=== PATIENT | male | born 1965 | race Caucasian/White ===

== ENCOUNTER 2019-09-26 00:31 | Outpatient (CLI) | payer BC, SELFPAY ==
[2019-09-26 18:35] LABS: SARS-CoV-2 RNA PCR Negative
== END 2019-09-26 00:32 | disposition home or self-care (01) ==
LOC: ANHCOVIDDT 00:31
PROVIDERS: PCP Internal Medicine; Visit Provider Internal Medicine Gastroenterology
DX: Z01.812 Encounter for preprocedural laboratory examination (principal); Z20.828 Contact with and (suspected) exposure to other viral communicable diseases
CPT/HCPCS: 87635; C9803; U0003

== ENCOUNTER 2019-09-29 01:28 | Day surgery (SDC) | payer BC, SELFPAY ==
[2019-09-19 09:47] VITALS: BMI 38.7
--- NOTE | 2019-09-29 06:48 | WPDANESEPPF ---
Anes - Initial Pre Proc Eval Procedure: Operation Date: 09/29/19 08:00 Proposed Procedures p Screening Colonoscopy - Axel Lopez MD Date/Time: 09/29/19 06:48 Surgeon: Axel Lopez MD Pre Op Diagnosis: neoplasm screening, family hx colon CA Patient Data Age: 54 Gender: M Height: 1.83 m Weight: 129.5 kg Allergies Allergy/AdvReac Type Severity Reaction Status Date / Time bupropion Allergy Unknown Hives Verified 09/29/19 06:51 tramadol AdvReac Intermediate Dyspnea / Verified 09/29/19 06:51 SOB Home Medications Medication Instructions Recorded Confirmed Type lisinopril 5 mg tablet 5 mg PO DAILY 02/06/19 02/10/19 History melatonin 10 mg capsule PO 02/06/19 02/10/19 History metoprolol succinate 50 mg 50 mg PO DAILY 02/06/19 02/10/19 History tablet,extended release 24 hr omega-3 fatty acids 500 mg capsule 1,000 mg PO DAILY cap 02/06/19 02/10/19 History rosuvastatin 20 mg tablet 20 mg PO DAILY 02/10/19 02/10/19 History testosterone cypionate 200 mg/mL 200 mg IM .every 2 weeks #10 ml 06/10/19 06/10/19 Rx intramuscular oil zolpidem 10 mg tablet 10 mg PO .at hs #30 tablet 06/10/19 06/10/19 Rx quetiapine 25 mg tablet 25 mg PO BID #180 tablet 07/28/19 Rx metformin 500 mg tablet See Rx Instructions .ROUTE 08/07/19 Rx .COMPLEX #180 tablet clopidogrel 75 mg PO DAILY 09/29/19 09/29/19 History Patient hx anesthesia problems: none Family hx anesthesia problems: none PMFSH Past Medical History Medical History (Updated 09/29/19 @ 06:50 by Rosalio Diaz MD) Arthritis CAD (coronary artery disease) COPD (chronic obstructive pulmonary disease) Enlarged prostate with lower urinary tract symptoms (LUTS) Essential (primary) hypertension Hyperlipidemia, unspecified Meniere disorder Obesity Obstructive sleep apnea Type 2 diabetes mellitus without complication, without long-term current use of insulin Surgical History Surgical History (Updated 09/29/19 @ 06:50 by Rosalio Diaz MD) Hx of CABG Family History Family History (Updated 07/17/18 @ 10:00 by DOCTOR UNKNOWN) Mother Carcinoma of colon Patient's mother is Family history of coronary artery disease Family history of diabetes mellitus in first degree relative Family history of heart disease in male family member before age 55 Father Malignant neoplasm of prostate Family history of coronary artery disease Patient's father is Family history of lung disease Family history of heart disease in male family member before age 55 Social History Social History Smoking status: Former smoker Smoking end date: 02/12/11 Alcohol intake: never Anes - Eval Final PreProcedure Day of Procedure 09/29/19 06:48 Patient weight: obese Heart: regular rate and rhythm Lungs: clear to auscultation and normal air movement Airway: Mallampati scale class II Neurological: alert and oriented Last oral intake: >/= 8 hours ASA classification: III Emergent: no Anesthetic plan: proceed Anesthesia type and monitoring: general GIVS Informed Consent: The patient's anesthetic plan and its attendant risks and benefits were discussed with the patient/family/POA. Questions were solicited and answers provided to the satisfaction of the patient/family/POA.
[2019-09-29 06:53] VITALS: BP 120/82; PULSE 84; RESP 16; TEMP 36.2; O2SAT 98; BMI 37.6
[2019-09-29] MEDS: LACTATED RINGERS 1,000 ML 150 ML IV CONT (07:10)
[2019-09-29 07:50] LABS: Glucose Point of Care 141 (65-105)
--- NOTE | 2019-09-29 08:01 | WPDGICN ---
Assessment and Plan Assessment and plan (1) Family history of colon cancer: Code(s): Z80.0 - Family history of malignant neoplasm of digestive organs Status: Acute Assessment and Plan: Patient's mother had colon cancer. Patient's last colonoscopy was 6 years ago. Plan is for follow-up colonoscopy now and to be considered at 5 year intervals in the future. (2) CAD (coronary artery disease): Code(s): I25.10 - Atherosclerotic heart disease of [place] coronary artery without angina pectoris Status: Acute (3) Type 2 diabetes mellitus without complication, without long-term current use of insulin: Code(s): E11.9 - Type 2 diabetes mellitus without complications Status: Acute (4) COPD (chronic obstructive pulmonary disease): Code(s): J44.9 - Chronic obstructive pulmonary disease, unspecified Status: Acute GI Consult Note Consult date/time: 09/29/19 08:01 HPI: Noman Sigala is a 54 year old male Seen in evaluation at the request of Dr. Rik Templeton. Patient presents for screening colonoscopy. His mother had colon cancer. Patient states that his own weight appetite bowel movements are normal. He denies abdominal pain. He has had no bleeding. His bowel habits are normal. Family history is significant his mother had colon cancer period is no other reported history of colon or rectal disease. Past medical history is significant for atherosclerotic heart disease. Patient had a coronary artery bypass graft several years ago. Review of Systems Review of Systems: All systems reviewed & are unremarkable except as noted in HPI and below PMFSH Past Medical History Medical History Arthritis CAD (coronary artery disease) COPD (chronic obstructive pulmonary disease) Enlarged prostate with lower urinary tract symptoms (LUTS) Essential (primary) hypertension Hyperlipidemia, unspecified Meniere disorder Obesity Obstructive sleep apnea Type 2 diabetes mellitus without complication, without long-term current use of insulin Surgical History Surgical History Hx of CABG Family History Family History Mother Carcinoma of colon Patient's mother is Family history of coronary artery disease Family history of diabetes mellitus in first degree relative Family history of heart disease in male family member before age 55 Father Malignant neoplasm of prostate Family history of coronary artery disease Patient's father is Family history of lung disease Family history of heart disease in male family member before age 55 Social History Social History Smoking status: Former smoker Smoking end date: 02/12/11 Alcohol intake: never Meds Home Medications and Allergies Home Medications Medication Instructions Recorded Confirmed Type lisinopril 5 mg tablet 5 mg PO DAILY 02/06/19 02/10/19 History melatonin 10 mg capsule PO 02/06/19 02/10/19 History metoprolol succinate 50 mg 50 mg PO DAILY 02/06/19 02/10/19 History tablet,extended release 24 hr omega-3 fatty acids 500 mg capsule 1,000 mg PO DAILY cap 02/06/19 02/10/19 History rosuvastatin 20 mg tablet 20 mg PO DAILY 02/10/19 02/10/19 History testosterone cypionate 200 mg/mL 200 mg IM .every 2 weeks #10 ml 06/10/19 06/10/19 Rx intramuscular oil zolpidem 10 mg tablet 10 mg PO .at hs #30 tablet 06/10/19 06/10/19 Rx quetiapine 25 mg tablet 25 mg PO BID #180 tablet 07/28/19 Rx metformin 500 mg tablet See Rx Instructions .ROUTE 08/07/19 Rx .COMPLEX #180 tablet clopidogrel 75 mg PO DAILY 09/29/19 09/29/19 History Allergies Allergy/AdvReac Type Severity Reaction Status Date / Time bupropion Allergy Unknown Hives Verified 09/29/19 06:51 tramadol AdvReac Intermediate Dyspnea / Verified
[2019-09-29 08:25] VITALS: BP 120/82; PULSE 77; RESP 24; O2SAT 98
[2019-09-29 08:35] VITALS: BP 104/73; PULSE 74; RESP 17; O2SAT 96
[2019-09-29 08:45] VITALS: BP 107/73; PULSE 68; RESP 16; O2SAT 99
== END 2019-09-29 09:10 | disposition home or self-care (01) ==
PROVIDERS: PCP Internal Medicine; Visit Provider Internal Medicine Gastroenterology
PROC: 0DJD8ZZ Inspection of Lower Intestinal Tract, Via Natural or Artificial Opening Endoscopic (ICD-10-PCS; CPT 45378; principal; 2019-09-29 08:00)
DX: Z12.11 Encounter for screening for malignant neoplasm of colon (principal); Z80.0 Family history of malignant neoplasm of digestive organs; K57.30 Diverticulosis of large intestine without perforation or abscess without bleeding; K64.8 Other hemorrhoids; I10 Essential (primary) hypertension; E11.9 Type 2 diabetes mellitus without complications; J44.9 Chronic obstructive pulmonary disease, unspecified; I25.10 Atherosclerotic heart disease of native coronary artery without angina pectoris; Z95.1 Presence of aortocoronary bypass graft; E78.5 Hyperlipidemia, unspecified; G47.33 Obstructive sleep apnea (adult) (pediatric); E66.9 Obesity, unspecified; Z68.37 Body mass index [BMI] 37.0-37.9, adult; Z87.891 Personal history of nicotine dependence; Z79.02 Long term (current) use of antithrombotics/antiplatelets
CPT/HCPCS: G0105; J2704; J7120

== ENCOUNTER 2019-12-18 08:44 | Outpatient (CLI) | payer BC, SELFPAY ==
--- NOTE | ~2019-12-18 | CT_ITS ---
EXAMINATION: CT sinus wo con DATE: 12/18/2019 09:17 INDICATION: Chronic sinusitis, rhinitis TECHNIQUE: Computed tomography (CT) of the paranasal sinuses was performed without intravenous contra st. The dose-length product (DLP) was 294.13 mGy-cm. Iterative reconstruction was used. COMPARISON: None FINDINGS: There is a single sphenoid sinus cavity There is otherwise normal development and pneumatiz ation of the paranasal sinuses. There is near complete opacification of the right frontal sinus. A 9 mm polyp or mucous retention cyst is seen in the left maxillary sinus. Surgical changes are noted in the right ethmoidal air cells. There is mucosal thickening of the remaining ethmoidal air cells. Ther e is mucosal thickening of the bilateral maxillary sinuses with possible small fluid levels, right gr eater than left. There is mucosal thickening and wall thickening of the sphenoid sinus. The left osti omeatal complex is patent. The right is obstructed. There are 5 mm of leftward deviation of the nasal septum. Visualized soft tissues are unremarkable. IMPRESSION: 1. Sinus disease as detailed above. Reviewed, dictated and finalized at location A. ING PAINTER
== END 2019-12-18 08:45 | disposition home or self-care (01) ==
PROVIDERS: PCP Internal Medicine; Visit Provider Otolaryngology
DX: J32.9 Chronic sinusitis, unspecified (principal)
CPT/HCPCS: 70486

== ENCOUNTER 2020-02-01 08:01 | Outpatient (CLI) | payer BC, OTHER, SELFPAY ==
--- NOTE | ~2020-02-01 | CT_ITS ---
EXAMINATION:CT lung screening DATE: 02/01/2020 08:25 INDICATION: Personal history of tobacco dependence. Smoker who quit 8 years ago with 50 pack year his tory. TECHNIQUE: Computed tomography (CT) of the chest was performed without intravenous contrast. Automate d exposure control and iterative reconstruction technique were employed. The dose-length product (DLP ) was 417.59 mGy-cm. COMPARISON: Chest CT 11/23/2014 FINDINGS: Calcified pulmonary nodules and calcified hilar and mediastinal lymph nodes are consistent with old granulomatous disease. There is mild atelectasis in right middle lobe. No pleural effusion. The heart size is normal. There are coronary artery calcifications. No pericardial effusion. There ar e changes of coronary artery bypass grafting. There is moderate thoracic spondylosis. IMPRESSION: 1. Lung-RADS category 1: Negative. Continue annual screening with noncontrast low-dose chest CT in 12 months. Reviewed, dictated and finalized at location A. PARTS CLERK IMPRESSION: 1. Lung-RADS category 1: Negative. Continue annual screening with noncontrast l ow-dose chest CT in 12 months.
== END 2020-02-01 08:02 | disposition home or self-care (01) ==
PROVIDERS: PCP Internal Medicine; Visit Provider Nurse Practitioner
DX: Z12.2 Encounter for screening for malignant neoplasm of respiratory organs (principal); Z87.891 Personal history of nicotine dependence
CPT/HCPCS: G0297

== ENCOUNTER 2020-04-03 09:31 | Outpatient (CLI) | payer BC, OTHER, SELFPAY ==
[2020-04-03 10:33] LABS: Anion Gap 9 mmol/L (8-16); Blood Urea Nitrogen 16 mg/dL (9-20); Calcium 9.3 mg/dL (8.4-10.2); Carbon Dioxide 26 mmol/L (22-30); Chloride 103 mmol/L (98-107); Estimated Glomerular Filt Rate > 60; Glucose 184 mg/dL (75-110); Sodium 138 mmol/L (137-145)
== END 2020-04-03 09:32 | disposition home or self-care (01) ==
PROVIDERS: PCP Internal Medicine; Visit Provider Anesthesiology
DX: E11.9 Type 2 diabetes mellitus without complications (principal)
CPT/HCPCS: 36415; 80048

== ENCOUNTER → 2020-04-06 02:38 | Outpatient (CLI) | payer BC, OTHER, SELFPAY ==
[2020-04-06 20:35] LABS: SARS-CoV-2 RNA PCR Negative
== END ==
PROVIDERS: Family Provider Internal Medicine; PCP Internal Medicine; Visit Provider Otolaryngology
DX: Z01.812 Encounter for preprocedural laboratory examination (principal); Z20.822 Contact with and (suspected) exposure to COVID-19
CPT/HCPCS: C9803; U0003; U0005

== ENCOUNTER 2020-04-09 00:41 | Day surgery (SDC) | payer BC, OTHER, SELFPAY ==
[2020-01-06 08:56] VITALS: BMI 39.8
[2020-04-02 08:17] VITALS: BMI 38.0
--- NOTE | 2020-04-07 09:56 | PM.IMHP ---
H&P: HPI History of Present Illness Date/Time: 04/07/20 09:56 Chief Complaint: CRS, Nasal polyps, septal deviation, inferior turbinate hypertrophy, nasal obstruction Narrative: Noman Sigala is a 54 year old male who presents for a planned surgical procedure. Reports no new symptoms or changes in his medical history. Review of Systems Constitutional: Constitutional: Denies fatigue, Denies fever(s) and Denies lethargy Eyes: Eyes: Denies blurry vision and Denies change in vision ENT: Reports as per HPI Cardiovascular: Cardiovascular: Denies chest pain Respiratory: Respiratory: Denies cough Endocrine: Endocrine: Denies fatigue Hematologic/Lymphatic: Hematologic/Lymphatic: Denies easy bleeding, Denies easy bruising and Denies lymphadenopathy Allergic/Immunologic: Allergic/Immunologic: Denies seasonal rhinorrhea [facility] Past Medical History Medical History (Updated 04/07/20 @ 09:59 by Reid Jason MD) Arthritis CAD (coronary artery disease) COPD (chronic obstructive pulmonary disease) Enlarged prostate with lower urinary tract symptoms (LUTS) Essential (primary) hypertension Hyperlipidemia, unspecified Meniere disorder Obesity Obstructive sleep apnea Type 2 diabetes mellitus without complication, without long-term current use of insulin Surgical History Surgical History Hx of CABG Family History Family History Mother Carcinoma of colon Patient's mother is Family history of coronary artery disease Family history of diabetes mellitus in first degree relative Family history of heart disease in male family member before age 55 Father Malignant neoplasm of prostate Family history of coronary artery disease Patient's father is Family history of lung disease Family history of heart disease in male family member before age 55 Social History Social History Smoking packs per day: 1.5 Smoking cigarettes per day: 30.0 Years smoked: 30 Smoking pack-years: 45.00 Smoking status: Former smoker Tobacco type: cigarettes Smoking end date: 01/05/10 Alcohol intake: never Substance use: never Last use: 02/12/2011 Gender identity (if verbalized by the patient): Male Spiritual care concerns: No Meds Home Medications and Allergies Home Medications Medication Instructions Recorded Confirmed Type lisinopril 5 mg tablet 5 mg PO DAILY 02/06/19 02/23/20 History melatonin 10 mg capsule 10 mg PO HS 02/06/19 02/23/20 History omega-3 fatty acids 500 mg capsule 1,000 mg PO DAILY cap 02/06/19 02/23/20 History rosuvastatin 20 mg tablet 20 mg PO DAILY 02/10/19 02/23/20 History clopidogrel 75 mg PO DAILY 09/29/19 02/23/20 History aspirin 81 mg chewable tablet 81 mg PO BID 10/27/19 02/23/20 History multivitamin,[id number] 1 tablet PO DAILY 11/24/19 02/23/20 History metoprolol tartrate 100 mg PO BID 01/06/20 02/23/20 History zolpidem 10 mg PO HS 01/06/20 02/23/20 History quetiapine 25 mg tablet 25 mg PO BID #180 tablet 01/23/20 04/02/20 Rx budesonide 0.25 mg/2 mL suspension 0.25 mg IRRIGATION BID #60 ml 02/03/20 04/02/20 Rx for nebulization cholecalciferol (vitamin D3) 50 50 mcg PO DAILY 02/23/20 04/02/20 History mcg (2,000 unit) capsule meclizine 25 mg tablet 25 mg PO TID PRN 02/23/20 04/02/20 History testosterone cypionate 200 mg/mL 200 mg IM .every 2 weeks #10 ml 02/23/20 04/02/20 Rx intramuscular oil metformin 1,000 mg tablet 1,000 mg PO BID #90 tablet 02/27/20 04/02/20 Rx isosorbide mononitrate 30 mg PO DAILY 04/02/20 04/02/20 History nitroglycerin 0.4 mg SUBLINGUAL PRN 04/02/20 History Allergies Allergy/AdvReac Type Severity Reaction Status Date / Time bupropion Allergy Mild Hives Verified 03/02/20 15:16 tramadol AdvReac Intermediate Dyspnea / Verified 03/02/20 15:16 SOB Exam Const: General:
--- NOTE | 2020-04-08 10:41 | WPDANESEPPF ---
Anes - Initial Pre Proc Eval Procedure: Operation Date: 04/09/20 07:30 Proposed Procedures p Septoplasty - Reid Jason MD s CT Guided Bilateral Maxillary Antrostomy, Bilateral Sphenoidotomy, Total Ethmoidectomy, Frontal Sinusotomy - Reid Jason MD Date/Time: 04/08/20 10:41 Surgeon: Reid Jason MD Pre Op Diagnosis: Chronic Sinusitis Patient Data Age: 54 Gender: M Height: 6 ft Weight: 127 kg Allergies Allergy/AdvReac Type Severity Reaction Status Date / Time bupropion Allergy Severe Hives Verified 04/09/20 06:12 tramadol AdvReac Intermediate Dyspnea / Verified 03/02/20 15:16 SOB Home Medications Medication Instructions Recorded Confirmed Type lisinopril 5 mg tablet 5 mg PO DAILY 02/06/19 04/09/20 History melatonin 10 mg capsule 10 mg PO HS 02/06/19 04/09/20 History omega-3 fatty acids 500 mg capsule 1,000 mg PO DAILY cap 02/06/19 04/09/20 History rosuvastatin 20 mg tablet 20 mg PO DAILY 02/10/19 04/09/20 History clopidogrel 75 mg PO DAILY 09/29/19 04/09/20 History aspirin 81 mg chewable tablet 81 mg PO BID 10/27/19 04/09/20 History multivitamin,[id number] 1 tablet PO DAILY 11/24/19 04/09/20 History metoprolol tartrate 100 mg PO BID 01/06/20 04/09/20 History zolpidem 10 mg PO HS 01/06/20 04/09/20 History quetiapine 25 mg tablet 25 mg PO BID #180 tablet 01/23/20 04/09/20 Rx budesonide 0.25 mg/2 mL suspension 0.25 mg IRRIGATION BID #60 ml 02/03/20 04/09/20 Rx for nebulization cholecalciferol (vitamin D3) 50 50 mcg PO DAILY 02/23/20 04/09/20 History mcg (2,000 unit) capsule meclizine 25 mg tablet 25 mg PO TID PRN 02/23/20 04/02/20 History testosterone cypionate 200 mg/mL 200 mg IM .every 2 weeks #10 ml 02/23/20 04/09/20 Rx intramuscular oil metformin 1,000 mg tablet 1,000 mg PO BID #90 tablet 02/27/20 04/09/20 Rx isosorbide mononitrate 30 mg PO DAILY 04/02/20 04/09/20 History nitroglycerin 0.4 mg SUBLINGUAL PRN PRN 04/02/20 04/09/20 History albuterol sulfate 2 puff INHALATION QID PRN 04/09/20 04/09/20 History Patient hx anesthesia problems: none Family hx anesthesia problems: none PMFSH Past Medical History Medical History (Updated 04/07/20 @ 09:59 by Reid Jason MD) Arthritis CAD (coronary artery disease) COPD (chronic obstructive pulmonary disease) Enlarged prostate with lower urinary tract symptoms (LUTS) Essential (primary) hypertension Hyperlipidemia, unspecified Meniere disorder Obesity Obstructive sleep apnea Type 2 diabetes mellitus without complication, without long-term current use of insulin Surgical History Surgical History Hx of CABG Family History Family History Mother Carcinoma of colon Patient's mother is Family history of coronary artery disease Family history of diabetes mellitus in first degree relative Family history of heart disease in male family member before age 55 Father Malignant neoplasm of prostate Family history of coronary artery disease Patient's father is Family history of lung disease Family history of heart disease in male family member before age 55 Social History Social History Smoking packs per day: 1.5 Smoking cigarettes per day: 30.0 Years smoked: 30 Smoking pack-years: 45.00 Smoking status: Former smoker Tobacco type: cigarettes Smoking end date: 01/05/10 Alcohol intake: never Substance use: never Last use: 02/12/2011 Living arrangements: with family Gender identity (if verbalized by the patient): Male Sexual Orientation (if Verbalized by the Patient): Straight or Heterosexual Spiritual care concerns: No Anes - Eval Final PreProcedure Day of Procedure 04/08/20 10:41 Patient weight: obese Heart: regular rate and rhythm Lungs: clear to auscultation Airway: Mallampati scale class III Neurological: alert and oriented
[2020-04-09] VITALS (10 sets, daily range): BP systolic 128–154; BP diastolic 82–101; PULSE 67–81; RESP 15–20; TEMP 36.1; O2SAT 95–99
[2020-04-09] MEDS: ACETAMINOPHEN 500 MG TABLET 1000 MG PO (06:38)
[2020-04-09] MEDS: LACTATED RINGERS 1,000 ML 30 ML IV CONT ×2 (06:45→10:24)
[2020-04-09 06:49] LABS: Glucose Point of Care 145 (65-105)
--- NOTE | 2020-04-09 07:09 | WPDHPUPDATE1 ---
History and Physical Update Update Date/Time: 04/09/20 07:09 History and Physical has been reviewed, including an updated exam of the patient. There are NO changes in the patient's condition. Risks, benefits, and alternatives have been discussed and questions answered. Patient agrees to proceed with procedure.
[2020-04-09] MEDS: ceFAZolin 2 GM/D5W 50 ML 2 GM/50 ML BAG IVPB (07:30)
[2020-04-09] MEDS: OXYMETAZOLINE HCL 0.05% NAS 15 ML BTL (*BKC) 1 SPRAY NASAL (07:41)
[2020-04-09] MEDS: LIDO 1%/EPINEPHRINE 1:100,000 50 ML VIAL INFILTRATE (07:42)
[2020-04-09 10:35] LABS: Glucose Point of Care 175 (65-105)
[2020-04-09] MEDS: fentaNYL CITRATE INJ (*CRX) 100 MCG/2 ML VIAL 25 MCG IV PUSH ×7 (10:38→11:09)
--- NOTE | 2020-04-09 11:46 | P.OP_ITS ---
Procedure Note - Detailed Date of procedure: 04/09/20 Pre-op diagnosis: Chronic Sinusitis Septal deviation Inferior turbinate hypertrophy Post-op diagnosis: same Procedure performed: 1. Endoscopic bilateral maxillary antrostomies 2. Endoscopic bilateral total ethmoidectomies 3. Endoscopic bilateral sphenoidotomies 4. Endoscopic frontal sinusotomies 5. Endoscopic septoplasty 6. Inferior turbinate in mid reduction and outfracture Description of procedure: The patient was correctly identified and consent was verified in the preoperative holding area. The patient was then brought to the operating room timeout performed. General anesthesia was induced and the tracheal tube was secured the patient's airway and taped the left lower lip. The bed was then appropriately positioned. Image guidance was initiated. Afrin-soaked pledgets were placed in the nose and allowed to sit for 5 minutes. The patient was then prepped and draped for the aforementioned procedures. Under endoscopic guidance the bilateral nasal passages were examined. A backbiter was utilized to complete the maxillary antrostomies and connected to the natural os. [place] was utilized to complete total ethmoidectomies to the skull base insuring that no partitions remain. [place] as well as microdebrider was utilized to enter and perform sphenoidotomies. A 70 degree scope and frontal instruments were utilized to create frontal sinus dirty perform frontal sinusotomies. Polyps were noted in the bilateral frontal sinuses and these were removed with a 40 degree angled micro debrider. The septoplasty was performed using a caudal and 7 [place] suction bony partitions were removed with osteotome as well as [place] forceps. The turbinates were then reduced with a suction Bovie and micro debrider. They were outfractured using a [place] elevator. Both Esquivel splints were placed and sutured anteriorly using a 3 0 nylon suture. Of note the left middle turbinate was removed as it was obstructive of the left middle meatus and polypoid tissue. Stump was cauterized with the Bovie suction cautery device. I performed all dictated portions. Hemostasis was excellent following the procedure. Care the patient was turned over to Anesthesiology. Anesthesia: GLMA Surgeon: Reid Jason MD Estimated blood loss (mL): 100 Complications: No immediate complications Condition: stable Disposition: PACU
[2020-04-09] MEDS: oxyCODONE HCL (*CRX) 5 MG TAB IR PO (12:03)
== END 2020-04-09 12:52 | disposition home or self-care (01) ==
PROVIDERS: PCP Internal Medicine; Visit Provider Otolaryngology
PROC: (CPT 30520; principal; 2020-04-09 07:30)
PROC: (CPT 31256; 2020-04-09 07:30)
DX: J32.9 Chronic sinusitis, unspecified (principal); J34.89 Other specified disorders of nose and nasal sinuses; J34.3 Hypertrophy of nasal turbinates; J34.2 Deviated nasal septum; Z79.82 Long term (current) use of aspirin; Z79.84 Long term (current) use of oral hypoglycemic drugs; Z87.891 Personal history of nicotine dependence; I25.10 Atherosclerotic heart disease of native coronary artery without angina pectoris; M19.90 Unspecified osteoarthritis, unspecified site; J44.9 Chronic obstructive pulmonary disease, unspecified; I10 Essential (primary) hypertension; H81.09 Meniere's disease, unspecified ear; G47.33 Obstructive sleep apnea (adult) (pediatric); E11.9 Type 2 diabetes mellitus without complications; Z95.1 Presence of aortocoronary bypass graft; E66.8 Other obesity; Z68.38 Body mass index [BMI] 38.0-38.9, adult
CPT/HCPCS: 31256; 31257; 31253; 61782; 30520; 30140; 82948; A9270; J0330; J0690; J2250; J2704; J3010; J7120